=== PATIENT | male | born 1990 | race Two or more races ===

== ENCOUNTER 2017-10-04 05:55 | Emergency (ER) | payer OTHER, MEDICAID ==
[~2017-10-04] VITALS: Ht 177.8 cm; Wt 135.6 kg
[2017-10-04 06:10] VITALS: BP 145/99
[2017-10-04 07:06] LABS: Urine Bacteria NONE SEEN /hpf (None Seen); Urine Blood Negative /uL (Negative); Urine WBC <1 /hpf (0 - 3)
== END 2017-10-04 07:02 | disposition home or self-care (01) ==
LOC: ER 05:59
DX: S30.21XA Contusion of penis, initial encounter (principal); X58.XXXA Exposure to other specified factors, initial encounter; Y93.89 Activity, other specified; Y92.89 Other specified places as the place of occurrence of the external cause; Y99.8 Other external cause status
CPT/HCPCS: 81001; 82962